=== PATIENT | female | born 1970 | race Caucasian/White ===

== ENCOUNTER 2017-05-31 17:31 | Emergency (ER) | payer MEDICAID ==
[~2017-05-31] VITALS: Ht 165.1 cm; Wt 81.3 kg
[2017-05-31 17:37] VITALS: BP 125/73; PULSE 85; RESP 16; TEMP 98.3
[2017-05-31] MEDS ORDERED: MONT10TA2 PO (17:51)
--- NOTE | 2017-05-31 17:57 | PD ---
HPI Chief Complaint: Oral / Dental Pain or Problem Time Seen by Provider: 17:43 Travel History International Travel<30 days: No Contact w/Intl Traveler<30days: No Traveled to known affect area: No History of Present Illness HPI 47 year-old female presents to the emergency room for evaluation of right-sided nasal pain and pressure for the past 2 days. Patient states she has had sinus congestion and postnasal drip for the past 1.5 weeks. She was put on fluticasone by her primary care physician but only started taking it yesterday. Patient states pain is severe, constant. It is worse with biting down. She has not been able to eat because the pain is so bad. She has been taking Tylenol and Aleve for pain. She denies specific, localized tooth pain. She's never had a toothache or cavity before. Denies fever, chills, nausea, vomiting , dental drainage, earache, sore throat, and cough. PFSH Past Medical History ?: Not LMP: april 29 Social History Tobacco Use: Yes Allergies-Medications (Allergen,Severity, Reaction): Coded Allergies: No Known Allergies (Unverified , 05/31/17) Review of Systems Except as stated in HPI: all other systems reviewed are Neg Physical Exam Narrative GENERAL: Well-nourished, well-developed patient. SKIN: Focused skin assessment warm/dry. HEAD: Normocephalic. EYES: No scleral icterus. No injection or drainage. NECK: Supple, trachea midline. No JVD or lymphadenopathy. ENT: Mucosa pink and moist. No erythema or exudates. No uvular edema. No uvular , palatal, or tonsillar deviation. Airway patent. Nasal turbinates appear normal without nasal blood, purulent drainage or septal hematoma. EARS: Bilateral pinnae and external canals appear within normal limits. Bilateral tympanic membranes without erythema, dullness or perforation. CARDIOVASCULAR: Regular rate and rhythm without murmurs, gallops, or rubs. RESPIRATORY: Breath sounds equal bilaterally. No accessory muscle use. No crackles, rales, wheezes, or rhonchi. Data Data Last Documented VS Vital Signs Date Time Temp Pulse Resp B/P (MAP) Pulse Ox O2 Delivery O2 Flow Rate FiO2 05/31/17 17:37 98.3 85 16 125/73 (90) MDM Medical Decision Making Medical Screen Exam Complete: Yes Emergency Medical Condition: Yes Medical Record Reviewed: Yes Differential Diagnosis Dentalgia, cavity, sinus infection, trigeminal neuralgia Narrative Course 47-year-old female presents to the emergency room for evaluation of right sided maxillary sinus pain and pressure for the past 2 days. She has had postnasal drip for the past 1.5 weeks. Her doctor diagnosed has allergies and put her on fluticasone but she has started taking last night. No history of fevers. No associated upper respiratory symptoms or cough. She is afebrile and well- appearing in the emergency room. Resting comfortably in bed. Physical exam is unremarkable. Mild tenderness to palpation of the right maxillary sinus. Dental exam is unremarkable. No evidence of infection or cavity. Patient will be treated empirically for bacterial sinusitis given duration of symptoms. She was told to follow-up with her primary care physician for outpatient referral to ENT if symptoms persist. Told to return for worsening symptoms as needed. She understands and agrees to plan. Diagnosis Primary Impression: Sinusitis, acute maxillary Qualified Codes: J01.00 - Acute maxillary sinusitis, unspecified Referrals: Primary Care Physician Additional Instructions: Rest and drink plenty of fluids. Take Augmentin as directed, until gone. Follow up with a primary care physician. Return to emergency room for worsening symptoms, as discussed. Med/Other Pt SpecificInfo: Prescription(s) given Disposition: 01 DISCHARGE HOME Condition: Stable Marcella Seo May 31, 2017 17:57
[2017-05-31] MEDS ORDERED: AUGM875T3 PO (17:58)
== END 2017-05-31 18:14 | disposition home or self-care (01) ==
LOC: PHEFT 17:31
DX: J01.00 Acute maxillary sinusitis, unspecified (principal); Z72.0 Tobacco use
CPT/HCPCS: 99283

== ENCOUNTER 2017-09-02 01:12 | Emergency (ER) | payer SELFPAY ==
[~2017-09-02] VITALS: Ht 165.1 cm; Wt 79.5 kg
[~2017-09-02 01:12] MED LIST: AUGM875T3 PO; MONT10TA2 PO
[2017-09-02 01:17] VITALS: BP 124/76; PULSE 90; RESP 20; TEMP 98.2; O2SAT 97
[2017-09-02] MEDS ORDERED: EFFE150C PO (01:56)
[2017-09-02] MEDS ORDERED: DOXE75CA2 PO (01:57)
--- NOTE | 2017-09-02 02:56 | PD ---
HPI Chief Complaint: Facial Pain or Swelling Time Seen by Provider: 02:47 Travel History International Travel<30 days: No Contact w/Intl Traveler<30days: No Traveled to known affect area: No History of Present Illness HPI The patient is a 47-year-old female that has a history of sinusitis and complains of this similar pain in her left maxillary sinus for 2 days. She believes she was on Augmentin in the past that was treated successfully last May. She denies any fever. She does not have dental problems. The patient is a one pack-a-day smoker. PFSH Past Medical History Anxiety: Yes Diminished Hearing: No Tetanus Vaccination: > 5 Years Influenza Vaccination: No ?: Unknown LMP: 2 WEEKS AGO Past Surgical History Surgical History: No Previous Surgery Social History Alcohol Use: Yes (Occ) Tobacco Use: Yes (1 ppd) Substance Use: No Allergies-Medications (Allergen,Severity, Reaction): Coded Allergies: No Known Allergies (Unverified Adverse Reaction, Unknown, 09/02/17) Reported Meds & Prescriptions Reported Meds & Active Scripts Active Reported Doxepin (Doxepin HCl) 75 Mg Cap 75 Mg PO DAILY PRN Effexor XR 24 HR (Venlafaxine HCl) 150 Mg Cap 150 Mg PO DAILY Singulair (Montelukast Sodium) 10 Mg Tab 10 Mg PO HS Review of Systems Except as stated in HPI: all other systems reviewed are Neg Physical Exam Narrative GENERAL: Well-nourished, well-developed patient in minimal apparent distress with her left maxillary sinus pain. Her vital signs are normal. SKIN: Focused skin assessment warm/dry. HEAD: Normocephalic. EYES: No scleral icterus. No injection or drainage. NECK: Supple, trachea midline. No JVD or lymphadenopathy. CARDIOVASCULAR: Regular rate and rhythm without murmurs, gallops, or rubs. RESPIRATORY: Breath sounds equal bilaterally. No accessory muscle use. GASTROINTESTINAL: Abdomen soft, non-tender, nondistended. MUSCULOSKELETAL: No cyanosis, or edema. BACK: Nontender without obvious deformity. No CVA tenderness. ENT: There is sinus tenderness over the left maxillary sinus and, to a lesser extent the right maxillary sinus. Dental exam appears normal and there is no tenderness over the teeth. Data Data Last Documented VS Vital Signs Date Time Temp Pulse Resp B/P (MAP) Pulse Ox O2 Delivery O2 Flow Rate FiO2 09/02/17 01:17 98.2 90 20 124/76 (92) 97 MDM Medical Decision Making Medical Screen Exam Complete: Yes Emergency Medical Condition: Yes Medical Record Reviewed: Yes Differential Diagnosis Acute sinusitis, dental infection, cellulitis face, headache Narrative Course The patient has an acute maxillary sinusitis. She will be given Augmentin 875 twice daily for 10 days. She will get a refill on the Augmentin. She will also get a prescription for Percocet 5, #15. Diagnosis Primary Impression: Maxillary sinusitis, acute Additional Instructions: The antibiotic is one tablet twice daily for 10 days and you have a refill on it if necessary. Follow-up with your primary care physician next week. Discontinue smoking. Med/Other Pt SpecificInfo: Prescription(s) given Disposition: 01 DISCHARGE HOME Condition: Stable Samson Desai MD Sep 02, 2017 02:56
[2017-09-02] MEDS ORDERED: AMOXICILLIN/CLAVULANATE K 875 MG TAB PO ONE (03:00)
[2017-09-02] MEDS ORDERED: AUGM875T3 PO (03:00)
[2017-09-02] MEDS ORDERED: PERC5TAB12 PO (03:01)
[2017-09-02 03:16] VITALS: BP 122/80
== END 2017-09-02 03:19 | disposition home or self-care (01) ==
LOC: PHED 01:12
DX: J01.00 Acute maxillary sinusitis, unspecified (principal); F41.9 Anxiety disorder, unspecified; F17.210 Nicotine dependence, cigarettes, uncomplicated; Z79.899 Other long term (current) drug therapy
CPT/HCPCS: 99284